=== PATIENT | male | born 1975 | race Caucasian/White ===

== ENCOUNTER 2020-06-25 06:51 | Day surgery (SDC) | payer OTHER, SELFPAY ==
[~2020-06-25] VITALS: Ht 167.6 cm; Wt 95.3 kg
[2020-06-25] MEDS ORDERED: fentaNYL citrate 0.05 MG/ML VIAL ONE (10:23)
[2020-06-25] MEDS ORDERED: MIDAZOLAM 5 MG/5 ML VIAL ONE (10:23)
[2020-06-25] MEDS ORDERED: diphenhydrAMINE 50 MG/ML VIAL ONE (10:23)
[2020-06-25] MEDS ORDERED: diphenhydrAMINE 50 MG/ML VIAL IVP ONE (13:05)
[2020-06-25] MEDS ORDERED: fentaNYL citrate 0.05 MG/ML VIAL IVP ONE (13:05)
[2020-06-25] MEDS ORDERED: MIDAZOLAM 2 MG/2 ML VIAL IVP ONE (13:05)
== END 2020-06-25 12:40 | disposition home or self-care (01) ==
LOC: MMU 06:51 → MDS 06:51
PROVIDERS: ATTEND Internal Medicine Gastroenterology
DX: K21.9 Gastro-esophageal reflux disease without esophagitis (principal); K44.9 Diaphragmatic hernia without obstruction or gangrene; K30 Functional dyspepsia; Z79.899 Other long term (current) drug therapy; Z20.828 Contact with and (suspected) exposure to other viral communicable diseases
CPT/HCPCS: 43235; J1200; J2250; J3010; U0003

== ENCOUNTER 2021-10-28 06:27 | Day surgery (SDC) | payer OTHER ==
[~2021-10-28] VITALS: Ht 167.6 cm; Wt 97.5 kg
[2021-10-28] MEDS ORDERED: fentaNYL citrate 0.05 MG/ML VIAL ONE (08:09)
[2021-10-28] MEDS ORDERED: MIDAZOLAM 5 MG/5 ML VIAL ONE (08:09)
[2021-10-28] MEDS ORDERED: diphenhydrAMINE 50 MG/ML VIAL ONE (08:09)
[2021-10-28] MEDS ORDERED: fentaNYL citrate 0.05 MG/ML VIAL IVP ONE (14:10)
[2021-10-28] MEDS ORDERED: MIDAZOLAM 2 MG/2 ML VIAL IVP ONE (14:10)
[2021-10-28] MEDS ORDERED: diphenhydrAMINE 50 MG/ML VIAL IVP ONE (14:10)
== END 2021-10-28 09:35 | disposition home or self-care (01) ==
LOC: MOR 06:27 → MMU 06:27 → MOR 09:35
PROVIDERS: ATTEND Internal Medicine Gastroenterology
DX: Z12.11 Encounter for screening for malignant neoplasm of colon (principal); D12.3 Benign neoplasm of transverse colon; D12.4 Benign neoplasm of descending colon; Z20.822 Contact with and (suspected) exposure to COVID-19
CPT/HCPCS: 45385; 87426; J1200; J2250; J3010